=== PATIENT | male | born 1995 | race Caucasian/White ===

== ENCOUNTER 2022-03-14 11:16 | Emergency (ER) | payer SELFPAY ==
[~2022-03-14] VITALS: Ht 167.6 cm; Wt 73.0 kg
[2022-03-14] MEDS: METHYLPREDNISOLONE SOD SUCC 125 MG/2 ML VIAL IV ONE (11:44)
[2022-03-14] MEDS: SODIUM CHLORIDE 0.9% 1,000 ML IV SCH (11:44)
[2022-03-14] MEDS: FAMOTIDINE 20MG/2ML VIAL IV ONE (11:44)
[2022-03-14] MEDS ORDERED: EPIN0.3P3 IM (15:12)
[2022-03-14] MEDS ORDERED: DIPH25CA83 MT (15:12)
[2022-03-14] MEDS ORDERED: P20 MT (15:12)
[2022-03-14 15:41] VITALS: BP 105/65
== END 2022-03-14 15:42 | disposition home or self-care (01) ==
LOC: ER 11:16
DX: T78.2XXA Anaphylactic shock, unspecified, initial encounter (principal); F12.10 Cannabis abuse, uncomplicated; J45.909 Unspecified asthma, uncomplicated
CPT/HCPCS: 93005; 96361; 96374; 96375; 99284; J2930; J3490